=== PATIENT | female | born 1950 | race Caucasian/White ===

== ENCOUNTER → 2016-11-08 | Outpatient (CLI) | payer MEDICARE ==
[~2016-11-08] MED LIST: ADVAIR DISKUS 21 DSK; AMOXICILLIN AND1 TA1; CLARITIN LIQUI-10 MG; KEFLEX500 M1; LISINOPRIL/HCTZ1 TA3; OMEPRAZOLE40 MG; OXYBUTYNIN CHLOR5 MG; POTASSIUM CHL; PREDNISONE 5MG.5 MG; PROAIR HFA0.09 MG/AC; SINGULAIR 10 MG10 MG; [UNRECOGNIZED DRUG - OTHER]
[2016-11-08 09:14] LABS: BUN 14 mg/dL (7-18)
[2016-11-08 09:15] LABS: GFR (ESTIMATED) 84 ML/MIN (59-)
--- NOTE | 2016-11-08 13:59 | RADIOLOGY REPORT PS360 ---
CTA-ABD AORTA ROQUE ILEOFEM RO HISTORY: PAD . Lymphedema Patient Age: 65 years: Female Ordering Physician: MI GOLDBERG MD TECHNIQUE: Bolus administration of 120 cc of Isovue-370 followed x 100 mL normal saline. Helical CT scans in performed from the appears margin of the heart and including lower thoracic aorta, intact abdominal aorta and continuing along the legs for femoral runoff bilateral. COMPARISON :Duplex Doppler study FINDINGS Images begin at the level of the main pulmonary artery. Prominent 3.9 cm diameter main pulmonary artery with prominent 3 cm diameter right pulmonary artery.-Suspect underlying pulmonary hypertension. Bibasilar atelectasis.. Descending Thoracic aorta normal caliber Abdominal aorta. Normal caliber no aneurysm Mild diffuse atherosclerotic calcification is seen at the infrarenal region and iliac origins. . No iliac artery stenosis. There are 2 small LEFT renal arteries supplying the LEFT kidney. These appear widely patent and unremarkable Right renal artery with moderate calcified plaque and mild narrowing noted Minimal calcified plaque plaque at the origin and throughout SMA SMA. No significant stenosis here nor at at celiac artery Liver spleen adrenals gallbladder pancreas unremarkable. . Small fat-containing umbilical hernia noted. Prominent stool throughout colon. Vascular clip right lower quadrant from previous surgery likely from RIGHT LEG Right common iliac with minimal calcified plaque right external iliac widely patent. Minor calcified plaque right common femoral. . . minimal thin calcified plaque throughout the distal SFA and distal popliteal artery to continuing to the trifurcation.- No significant appearing stenosis through this segment. There is mild diffuse thin calcification of the arteries below the knee and below the trifurcation to the ankle, making it more difficult to visualize contrast within these vessels but on the the thickened MIPP imagesin Pacs and on CT workstation date appear to be patent to the ankle,. The anterior tibial supplying dorsalis pedis vessel is most evident leading to the distal foot and supplying the arcade of the foot.. However the posterior tibial artery also appears to the patent to the foot. The peroneal artery patent leading to the ankle as well LEFT LEG Left common femoral artery widely patent and unremarkable as is the external left iliac artery. Common femoral artery and proximal superficial femoral artery widely patent. Profundus identified in.q Only Minimal thin calcified plaque throughout the distal SFA and distal popliteal artery to continuing to the trifurcation.- No significant appearing stenosis through this segment. There is mild diffuse thin calcification of the arteries below the knee and below the trifurcation to the ankle, making it more difficult to visualize contrast within these vessels but on the the thickened MIPP imagesin Pacs and on CT workstation date appear to be patent to the ankle,. The anterior tibial supplying dorsalis pedis vessel is most evident leading to the distal foot and supplying the arcade of the foot.. However the posterior tibial artery also appears to the patent to the foot. The peroneal artery patent leading to the ankle as well IMPRESSION: Calcified plaque distal aorta but Aorta no stenosis. Minimal metastatic calcified plaque origin common femoral arteries. . external Iliac arteries are patent bilaterally with no significant stenosis. SFA & popliteal artery patent with no flow-limiting stenosis. Thin calcified plaque is seen at distal SFA & distal popliteal continuing through trifurcation but no significant stenosis seen here. Diffuse thin calcification of lower leg vessels but overall Surprisingly good three-vessel runoff to the ankle and feet bilaterally Incidental note is made of prominent caliber pulmonary arteries-suspect reflects underlying pulmonary hypertension
== END ==
LOC: RAD 08:52
PROVIDERS: Thoracic Surgery (Cardiothoracic Vascular Surgery)
DX: I70.213 Atherosclerosis of native arteries of extremities with intermittent claudication, bilateral legs (principal); I70.0 Atherosclerosis of aorta; I48.91 Unspecified atrial fibrillation; I73.9 Peripheral vascular disease, unspecified
CPT/HCPCS: Q9967

== ENCOUNTER → 2017-01-15 | Outpatient (CLI) | payer MEDICARE ==
[~2017-01-15] MED LIST changes: +KEFLEX 500MG.500 MG PO; +LASIX20 MG
--- NOTE | 2017-01-15 20:43 | RADIOLOGY REPORT PS360 ---
PROCEDURE: 2-D M-mode and color Doppler study INDICATIONS FOR THE TEST: Chest pain COPD Heart Murmur Tobacco Smoking Palpitations Fatigue Syncope Edema HypertensionXDiabetes Mellitus Rheumatic Fever SOBXDOE ObesityXHyperlipidemia Family History HD Additional History ABN EKG,RBBB,PAD PATIENT INFORMATION HEIGHT: 64 WEIGHT:204 GENDER: Female B/P:135/70 2-D/M-MODE INTERPRETATION: 2-D MEASUREMENTS OBSERVED VALUES IN CMS Right Ventricular Dimension (RVDd) 2.1 Interventricular Septum (Thickness)(IVsd) 1.2 Left Ventricular Internal Dimensions(LVIDd) 5.4 Left Ventricular Posterior Wall (Thickness)(LVPWd) 1.0 Aortic Root 3.3 Aortic Cusp Separation 2.1 Left Atrial Dimensions (LAD) 3.0 2D 1. Left atrium is mildly enlarged, left ventricle is normal size, there is mild concentric left ventricular hypertrophy present, visually estimated ejection fraction 55% with no obvious regional wall motion abnormality. 2. The right atrium and right ventricle are relatively normal size and function. 3. The aortic valve is minimally thickened and fibrosed. 4. The mitral and tricuspid valve leaflets are minimally thickened. 5. The pulmonic valve is poorly visualized. 6. No significant pericardial effusion noted. DOPPLER INTERROGATION: Doppler interrogation of the aortic, mitral and tricuspid valvular presence of mild aortic, mild mitral and tricuspid regurgitation, tricuspid regurgitant jet velocity is insufficient for calculation of the right ventricular systolic pressure, diastolic parameters are inconclusive. CONCLUSION: 1. Mildly enlarged left atrium, normal left ventricular size, mild concentric left ventricular hypertrophy, visually estimated ejection fraction 55% with no obvious regional wall motion abnormality, diastolic parameters are inconclusive. 2. Mild aortic, mild mitral and tricuspid regurgitation. 3. No significant pericardial effusion noted.
== END ==
LOC: RT 07:47
DX: R94.31 Abnormal electrocardiogram [ECG] [EKG] (principal); I73.9 Peripheral vascular disease, unspecified; I45.10 Unspecified right bundle-branch block; R60.9 Edema, unspecified; R00.0 Tachycardia, unspecified

== ENCOUNTER → 2017-01-16 | Day surgery (SDC) | payer MEDICARE ==
[2017-01-16 08:13] LABS: LYMPH # 2.4 K/mm3 (0.7-4.5); LYMPH % 25.6 % (10-50.0)
[2017-01-16 08:20] LABS: BUN 15 mg/dL (7-18); GFR (ESTIMATED) 84 ML/MIN (59-)
--- NOTE | 2017-01-16 09:49 | RADIOLOGY REPORT PS360 ---
PROCEDURE: 1. Catheter placement in the abdominal aorta 2. Abdominal aortography 3. Repositioning of the catheter in the abdominal aorta 4. Bilateral iliofemoral runoff INDICATION: 1. Abnormal ZION 0.4 on left leg 2. Peripheral artery disease Suspected vascular claudication Deangelo class III Informed consent was obtained prior to the procedure. COMPLICATIONS: None ESTIMATED BLOOD LOSS: Blood loss less than 10 cc. TECHNIQUE:1% lidocaine used to anesthetize the right groin. The right femoral artery was accessed via the central technique and a 5 Congolese sheath was placed in the right femoral artery. The pigtail catheter was placed in the abdominal aorta and abdominal aortography was performed. Catheter was then repositioned and bilateral iliofemoral runoff was performed. At the end of the procedure the apparatus was removed and the patient transferred the postop holding area in stable condition for sheath removal. ANGIOGRAPHIC RESULTS: Suprarenal abdominal aorta is normal The infrarenal abdominal aorta is normal The bilateral renal arteries are normal Mesenteric arteries are normal Bilateral common external and internal iliac arteries are normal Bilateral common femoral arteries are normal The Bilateral profunda femoris arteries are normal The bilateral superficial femoral artery and popliteal arteries are normal There is three-vessel runoff below the knee bilaterally Impression: 1. Essentially normal suprarenal infrarenal abdominal vasculature with normal three-vessel runoff below the knee Plan: Evaluation of nonvascular claudication Risk factor modification Patient would probably benefit from MRI of the L-spine etc.
[2017-01-16 13:00] VITALS: BP 125/68
== END ==
LOC: CATHLAB 07:31
PROVIDERS: Internal Medicine
PROC: B41D1ZZ Fluoroscopy of Aorta and Bilateral Lower Extremity Arteries using Low Osmolar Contrast (ICD-10-PCS; principal; 2017-01-16 08:30)
DX: I73.9 Peripheral vascular disease, unspecified (principal); I10 Essential (primary) hypertension; J45.909 Unspecified asthma, uncomplicated; Z77.22 Contact with and (suspected) exposure to environmental tobacco smoke (acute) (chronic); I45.19 Other right bundle-branch block
CPT/HCPCS: C1725; C1769; C1894; J1644; Q9966